=== PATIENT | female | born 1965 | race Caucasian/White ===

== ENCOUNTER → 2024-08-17 13:34 | Outpatient (CLI) | payer OTHER, SELFPAY ==
[2024-08-17 15:02] LABS: Hemoglobin A1C% w Est Avg Glu 5.9 % (4.0-6.0)
[2024-08-17 15:21] LABS: BUN Creatinine Ratio 15.2 (6-22); Blood Urea Nitrogen 12 mg/dL (7-17); Calcium 9.6 mg/dL (8.4-10.2); Carbon Dioxide 28 mmol/L (22-32); Chloride 102 mmol/L (98-107); Estimated Glomerular Filt Rate > 60 mL/min (>60); Glucose 101 mg/dL (70-99); HEMOLYSIS < 15 (0-50); Potassium 4.2 mmol/L (3.4-5.1); Sodium 139 mmol/L (137-145)
[2024-08-17 15:51] LABS: TSH w/ Reflex to FT4 1.09 uIU/mL (0.47-4.68)
[2024-08-17 16:10] LABS: Vitamin B12 553 pg/mL (239-931)
== END ==
PROVIDERS: PCP Family Medicine; Referring Provider Family Medicine; Visit Provider Family Medicine
DX: Z13.21 Encounter for screening for nutritional disorder (principal); R73.03 Prediabetes; R03.0 Elevated blood-pressure reading, without diagnosis of hypertension
CPT/HCPCS: 36415; 80048; 82607; 83036; 84443

== ENCOUNTER → 2025-03-08 14:38 | Outpatient (CLI) | payer OTHER, SELFPAY ==
--- NOTE | 2025-03-08 14:39 | DI.US.S_ITS ---
PROCEDURE: US THYROID INDICATIONS: neck swelling;hx of thyroid nodule TECHNIQUE: Real-time scanning was performed of the thyroid gland, with image documentation. COMPARISON: None. FINDINGS: Thyroid: Right lobe measures 4.3 x 1.2 x 1.0 cm. Left lobe measures 3.6 x 1.2 x 1.2 cm. Isthmus is 0.3 cm thick. Echotexture is homogeneous. No nodules IMPRESSION: Unremarkable ultrasound thyroid ACR TI-RADS definitions and recommendations: TI-RADS 1 (benign): 0 points. FNA not needed. TI-RADS 2 (not suspicious): 2 points. FNA not needed. TI-RADS 3: 3 points. * FNA if 2.5 cm or larger, follow up if 1.5 cm or larger (at 1, 3, and 5 years). TI-RADS 4: 4-6 points. * FNA if 1.5 cm or larger, follow up if 1 cm or larger (at 1, 2, 3, and 5 years). TI-RADS 5: 7 points or more. * FNA if 1 cm or larger, follow up if 0.5 cm or larger (every year for 5 years). Dictated by: Dwain Mcdaniel M.D. on 03/09/2025 at 11:14 Approved by: Dwain Mcdaniel M.D. on 03/09/2025 at 11:15
== END ==
PROVIDERS: PCP Family Medicine; Referring Provider Family Medicine; Visit Provider Family Medicine
DX: R22.1 Localized swelling, mass and lump, neck (principal); Z86.39 Personal history of other endocrine, nutritional and metabolic disease
CPT/HCPCS: 76536

== ENCOUNTER → 2025-03-31 08:11 | Outpatient (CLI) | payer OTHER, SELFPAY | PROVIDERS: PCP Family Medicine; Visit Provider Nurse Practitioner Family | DX: J02.9 Acute pharyngitis, unspecified (principal) | CPT/HCPCS: 87070 ==